=== PATIENT | male | born 1970 | race Caucasian/White ===

== ENCOUNTER 2022-03-29 13:55 | Emergency (ER) | payer BC, OTHER ==
[2022-03-29 14:25] VITALS: BP 151/100; PULSE 71; TEMP 98.6; BMI 32.5
[2022-03-29] MEDS ORDERED: IBUPROFEN 600 MG TABLET (FP) PO ONE ×2 (14:36→14:37)
== END 2022-03-29 15:30 | disposition home or self-care (01) ==
LOC: FER 13:55
DX: M25.562 Pain in left knee (principal)
CPT/HCPCS: 73560-TC-LT-FY; 99284-25